=== PATIENT | male | born 1995 | race African-American/Black ===

== ENCOUNTER 2023-10-28 20:45 | Emergency (ER) | payer MEDICARE, MEDICAID ==
[~2023-10-28] VITALS: Ht 172.7 cm; Wt 75.0 kg
[2023-10-28 20:47] VITALS: O2SAT 98
[2023-10-28] MEDS ORDERED: OLAN20TA34 MT (21:34)
[2023-10-28 21:39] VITALS: BP 130/77; PULSE 87; RESP 17; TEMP 98.3
== END 2023-10-28 21:42 | disposition home or self-care (01) ==
LOC: ER 20:45
DX: F20.9 Schizophrenia, unspecified (principal); Z76.0 Encounter for issue of repeat prescription
CPT/HCPCS: 99283

== ENCOUNTER 2024-03-31 15:33 | Emergency (ER) | payer MEDICARE, MEDICAID ==
[~2024-03-31] VITALS: Ht 188 cm; Wt 90.0 kg
[~2024-03-31 15:33] MED LIST: OLAN20TA79 MT
[2024-03-31 15:35] VITALS: O2SAT 99
[2024-03-31 15:39] VITALS: BP 125/57; PULSE 80; RESP 18; TEMP 98.4; O2SAT 99
[2024-03-31] MEDS ORDERED: OLAN20TA79 MT (16:38)
[2024-03-31] MEDS: OLANZAPINE 10MG TABLET PO SCH (17:31)
== END 2024-03-31 17:34 | disposition home or self-care (01) ==
LOC: ER 15:33
DX: Z76.0 Encounter for issue of repeat prescription (principal); Z86.59 Personal history of other mental and behavioral disorders
CPT/HCPCS: 99281; 99283

== ENCOUNTER 2024-06-16 08:15 | Emergency (ER) | payer OTHER, MEDICAID ==
[~2024-06-16] VITALS: Ht 177.8 cm; Wt 73.0 kg
[2024-06-16 08:20] VITALS: O2SAT 99
[2024-06-16 08:36] VITALS: TEMP 37.00296
[2024-06-16 08:52] LABS: BASOPHILS % 0.8 % (0.0-2.0); HEMATOCRIT. 42.2 % (42.0-52.0); HEMOGLOBIN. 14.6 g/dL (14.0-18.0); LYMPHOCYTES % 16.9 % (20.0-50.0); MEAN CORPUSCULAR HEMOGLOBIN 32.9 pg (28.0-32.0); MEAN CORPUSCULAR HGB CONC 34.7 g/dL (31.0-37.0); MEAN PLATELET VOLUME 8.6 fl (7.4-10.4); MONOCYTES % 4.8 % (2.0-8.0); NEUTROPHILS % 77.5 % (40.0-76.0); PLATELET 239 x1000/uL (130-400); RED BLOOD CELL COUNT 4.44 mill/uL (4.7-6.1); RED CELL DISTRIBUTION WIDTH 13.6 % (11.6-14.6); WHITE BLOOD COUNT 5.8 x1000/uL (4.5-11.0)
[2024-06-16 08:59] LABS: CHLORIDE 103 mEq/L (98-107); POTASSIUM 3.4 mEq/L (3.5-5.1); SODIUM 138 mEq/L (136-145)
[2024-06-16 09:00] LABS: CARBON DIOXIDE 24 mEq/L (21-32)
[2024-06-16 09:01] LABS: CALCIUM 9.8 mg/dL (8.7-10.4)
[2024-06-16 09:05] LABS: CREATININE 1.1 mg/dL (0.6-1.3)
[2024-06-16 09:06] LABS: GLUCOSE 100 mg/dL (70-105); UREA NITROGEN BLOOD 8 mg/dL (9-23)
[2024-06-16 09:07] LABS: ACETAMINOPHEN < 2 ug/mL (10-30)
[2024-06-16 09:11] LABS: *AMPHETAMINES SCREEN URINE NEGATIVE (NEGATIVE); *BARBITURATES SCREEN URINE NEGATIVE (NEGATIVE); *BENZODIAZEPINES SCREEN URINE NEGATIVE (NEGATIVE); *COCAINE SCREEN URINE NEGATIVE (NEGATIVE); CANNABINOID URINE SCREEN PRESUMPTIVE POSITIVE (NEGATIVE); ECSTASY MDMA SCREEN URINE NEGATIVE (NEGATIVE); METHADONE URINE SCREEN NEGATIVE (NEGATIVE); OPIATES URINE SCREEN NEGATIVE (NEGATIVE); PHENCYCLIDINE URINE SCREEN NEGATIVE (NEGATIVE)
[2024-06-16 09:22] LABS: CLARITY URINE CLEAR (CLEAR); COLOR URINE YELLOW (YELLOW); GLUCOSE URINE NEGATIVE (NEGATIVE); KETONES URINE 2+ (NEGATIVE); LEUKOCYTE ESTERASE URINE NEGATIVE (NEGATIVE); NITRITE URINE NEGATIVE (NEGATIVE); OCCULT BLOOD URINE NEGATIVE (NEGATIVE); PROTEIN URINE NEGATIVE (NEGATIVE); SPECIFIC GRAVITY URINE 1.007 (1.005-1.030); UROBILINOGEN URINE 0.2 E.U./dL (0.2-1.0)
[2024-06-16 09:47] LABS: ETHANOL BLOOD < 10 mg/dL (<10)
[2024-06-16 16:25] VITALS: BP 123/86; PULSE 81; RESP 16; O2SAT 100
[2024-06-16] MEDS ORDERED: RISPERIDONE 1MG TABLET PO SCH (21:00)
== END 2024-06-16 17:00 | disposition still patient (30) ==
LOC: ER 08:15
DX: R45.1 Restlessness and agitation (principal); Z20.822 Contact with and (suspected) exposure to COVID-19; Z86.59 Personal history of other mental and behavioral disorders
CPT/HCPCS: 36415; 80048; 80305; 80307; 80320; 80329; 81003; 85025; 87426; 99285; G0480